=== PATIENT | female | born 1955 | race Caucasian/White ===

== ENCOUNTER 2018-02-13 18:14 | Emergency (ER) | payer OTHER ==
[~2018-02-13] VITALS: Ht 152.4 cm; Wt 64.5 kg
[2018-02-13 18:25] VITALS: BP 130/69
[2018-02-13 20:22] VITALS: BP 105/57
== END 2018-02-13 20:22 | disposition home or self-care (01) ==
LOC: MED 18:14
DX: R05 Cough (principal); R52 Pain, unspecified; R06.02 Shortness of breath; Z90.49 Acquired absence of other specified parts of digestive tract
CPT/HCPCS: 99283

== ENCOUNTER 2020-02-04 09:34 | Emergency (ER) | payer OTHER ==
[~2020-02-04] VITALS: Ht 152.4 cm; Wt 68.5 kg
[2020-02-04 09:38] VITALS: BP 118/86
--- NOTE | 2020-02-04 10:05 | NUR ---
PT STILL UNABLE TO URINATE, ERMD MADE AWARE
--- NOTE | 2020-02-04 10:11 | NUR ---
64 YEAR OLD FEMALE COMPLAINS OF DYSURIA, FREQUENT URINATION X 3 DAYS. PT DENIES HEMATURIA OR FLANK PAIN. PT AOX4, BREATHING EVEN AND UNLABORED, SKIN WARM AND DRY. BED IN LOWEST POSITION, LOCKED, BED RAIL UPX1. PMH - DENIES ALLERGIES - NKA
[2020-02-04] MEDS ORDERED: cephALEXin 500 MG CAP PO ONE (10:30)
--- NOTE | 2020-02-04 10:56 | NUR ---
Covid swab collected and walked to lab.
[2020-02-04 11:41] VITALS: BP 118/86
--- NOTE | 2020-02-04 11:41 | NUR ---
Patient discharged with v/s stable. Written and verbal after care instructions given and explained. Patient alert, oriented and verbalized understanding of instructions. Ambulatory with steady gait. All questions addressed prior to discharge. ID band removed. Patient advised to follow up with PMD. Rx of Tessalon Perles, Levofloxacin 750mg, and Albuterol Inhaler given. Patient educated on indication of medication including possible reaction and side effects. Opportunity to ask questions provided and answered.
== END 2020-02-04 11:41 | disposition home or self-care (01) ==
LOC: MED 09:34
DX: U07.1 COVID-19 (principal); R35.0 Frequency of micturition
CPT/HCPCS: 71045; 81002; 81025; 87086; 99283; U0003

== ENCOUNTER 2020-09-22 11:38 | Emergency (ER) | payer OTHER ==
[~2020-09-22] VITALS: Ht 149.9 cm; Wt 72.6 kg
[2020-09-22 11:56] VITALS: BP 123/73
--- NOTE | 2020-09-22 12:00 | NUR ---
PT TO LOBBY.
--- NOTE | 2020-09-22 14:20 | NUR ---
Pt ambulated to bed 3.
[2020-09-22] MEDS ORDERED: predniSONE 20 MG TAB PO ONE (14:45)
[2020-09-22] MEDS ORDERED: ALBUTEROL SULFATE/IPRATROPIU 3 ML SOL IH ONE ×2 (14:45→16:15)
--- NOTE | 2020-09-22 14:45 | NUR ---
65 Y/O FEMALE C/O SORE THROAT XTODAY WITH PRODUCTIVE COUGH X3 DAYS. PT HAS A RASPY VOICE AND ALSO NASAL CONGESTION. PT STATES SHE TOOK NYQUIL LAST NIGHT WITH NO RELIEF. DENIES N/V, DENIES FEVER/CHILLS. PT IS COVID VACCINATED. PT A/O X4 WITH EVEN AND UNLABORED RESPIRATIONS. PMH:DENIES NKA
--- NOTE | 2020-09-22 15:10 | NUR ---
RAD AT BEDSIDE
--- NOTE | 2020-09-22 16:20 | NUR ---
RT AT BEDSIDE
--- NOTE | 2020-09-22 16:22 | NUR ---
[facility] THERPAY AND RESPIRATORY DRUG GIVEN ORDERED ENCOURAGED PATIENT FOR INTERMITTENT DEEP BREATHING DURING THERAPY
[2020-09-22] MEDS ORDERED: ACET-10509 PO (17:14)
[2020-09-22] MEDS ORDERED: ALBU0.0912 IH (17:14)
[2020-09-22] MEDS ORDERED: PRED20TA5 PO (17:14)
[2020-09-22 17:24] VITALS: BP 138/70
--- NOTE | 2020-09-22 17:24 | NUR ---
Patient discharged with v/s stable. Written and verbal after care instructions given and explained. Patient alert, oriented and verbalized understanding of instructions. Ambulatory with steady gait. All questions addressed prior to discharge. ID band removed. Patient advised to follow up with PMD. Rx of Prednisone, Proventil, Tylenol given. Patient educated on indication of medication including possible reaction and side effects. Opportunity to ask questions provided and answered.
== END 2020-09-22 17:24 | disposition home or self-care (01) ==
LOC: MED 11:38
DX: J06.9 Acute upper respiratory infection, unspecified (principal); Z20.822 Contact with and (suspected) exposure to COVID-19; J04.0 Acute laryngitis; Z79.899 Other long term (current) drug therapy
CPT/HCPCS: 71045; 94640; 99283; U0003; J7512

== ENCOUNTER 2020-10-03 20:09 | Emergency (ER) | payer OTHER, SELFPAY ==
[~2020-10-03] VITALS: Ht 152.4 cm; Wt 72.1 kg
[~2020-10-03 20:09] MED LIST: ACET-10509 PO; ALBU0.0912 IH; PRED20TA5 PO
[2020-10-03 20:15] VITALS: BP 145/67
--- NOTE | 2020-10-03 20:18 | NUR ---
TO LOBBY A/W BED AMBULATORY
--- NOTE | 2020-10-03 21:04 | NUR ---
PT TAKEN TO XRAY FROM [facility]
--- NOTE | 2020-10-03 21:17 | NUR ---
WAQAR COLLECTED AND GIVEN TO NII GASTON TECH
[2020-10-03 21:27] LABS: BASOPHILS # (AUTO) 0.1 K/uL (0.00-0.22); BASOPHILS % (AUTO) 0.7 % (0.0-2.0); EOSINOPHILS # (AUTO) 0.4 K/uL (0-0.4); EOSINOPHILS % (AUTO) 3.6 % (0.0-4.0); HEMATOCRIT 40.7 % (36-48); HEMOGLOBIN 13.4 g/dL (12.0-16.0); LYMPHOCYTES # (AUTO) 3.2 K/uL (2.5-16.5); LYMPHOCYTES % (AUTO) 31.6 % (20.5-51.1); MEAN CORPUSCULAR HEMOGLOBIN 33 pg (27-31); MEAN CORPUSCULAR HGB CONC 33 g/dL (33-37); MEAN CORPUSCULAR VOLUME 99.4 fL (80-94); MONOCYTES # (AUTO) 0.7 K/uL (0.8-1.0); MONOCYTES % (AUTO) 6.6 % (1.7-9.3); NEUTROPHILS # (AUTO) 5.8 K/uL (1.8-7.7); NEUTROPHILS % (AUTO) 57.5 % (42.2-75.2); PLATELET COUNT (AUTO) 331 K/uL (140-450); RED CELL DISTRIBUTION WIDTH 13.2 % (11.6-13.7); WHITE BLOOD COUNT (AUTO) 10.1 K/uL (4.8-10.8)
[2020-10-03 21:42] LABS: ALBUMIN 3.3 g/dL (3.4-5.0); ANION GAP 10.1 (8-16); CARBON DIOXIDE 29.1 mmol/L (21-32); CREATININE 0.8 mg/dL (0.6-1.3); POTASSIUM 4.2 mmol/L (3.5-5.1); TOTAL BILIRUBIN 0.3 mg/dL (0.0-1.0)
--- NOTE | 2020-10-03 22:24 | NUR ---
Patient discharged with v/s stable. Written and verbal after care instructions given and explained. Patient verbalized understanding. Ambulatory with steady gait. All questions addressed prior to discharge. Advised to follow up with PMD.
== END 2020-10-03 22:24 | disposition home or self-care (01) ==
LOC: MED 20:09
DX: D68.62 Lupus anticoagulant syndrome (principal); R05 Cough; Z20.822 Contact with and (suspected) exposure to COVID-19
CPT/HCPCS: 36415; 71045; 80053; 84484; 85025; 93005; 99283; 99285

== ENCOUNTER 2021-11-30 22:57 | Emergency (ER) | payer OTHER ==
[~2021-11-30] VITALS: Ht 152.4 cm; Wt 69.4 kg
--- NOTE | 2021-11-30 23:07 | NUR ---
to lobby a/w be ambulatory
--- NOTE | 2021-11-30 23:50 | NUR ---
PT TO BED 5
--- NOTE | 2021-12-01 | NUR ---
FIRST CONTACT WITH PT. PT SITTING IN CHAIR. NO S/S OF DISTRESS NOTED. SEE ASSESSMENT.
--- NOTE | 2021-12-01 00:05 | NUR ---
URINE SENT TO LAB
[2021-12-01 00:41] LABS: APPEARANCE,URINE CLEAR (CLEAR); BILIRUBIN,URINE NEGATIVE (NEGATIVE); BLOOD, URINE 2+ (NEGATIVE); COLOR,URINE ORANGE (YELLOW); LEUKOCYTE ESTERASE ,URINE 3+ (NEGATIVE); NITRITE, URINE POSITIVE (NEGATIVE); UGLUCOSE TRACE (NEGATIVE)
[2021-12-01] MEDS ORDERED: KETOROLAC 60 MG/2 ML VIAL IM ONE (00:45)
[2021-12-01] MEDS ORDERED: PHEN-1877 PO (00:49)
[2021-12-01] MEDS ORDERED: CIPR500T4 PO (00:49)
[2021-12-01] MEDS ORDERED: IBUP-2213 PO (00:49)
[2021-12-01 00:59] LABS: RBC,URINE 0-5 /HPF (0-5); WBC,URINE 20-60 /HPF (0-5)
[2021-12-01 01:00] VITALS: BP 132/76
--- NOTE | 2021-12-01 01:00 | NUR ---
Patient discharged with v/s stable. Written and verbal after care instructions given and explained. Patient alert, oriented and verbalized understanding of instructions. Ambulatory with steady gait. All questions addressed prior to discharge. ID band removed. Patient advised to follow up with PMD. Rx of CIPRO, PYRIDIUM, MOTRIN given. Patient educated on indication of medication including possible reaction and side effects. Opportunity to ask questions provided and answered.
[2021-12-01] MEDS ORDERED: DIPH25TA53 PO (02:39)
[2021-12-01] MEDS ORDERED: PRED20TA5 PO (02:39)
== END 2021-12-01 01:00 | disposition home or self-care (01) ==
LOC: MED 22:57
DX: N39.0 Urinary tract infection, site not specified (principal); J45.909 Unspecified asthma, uncomplicated; I10 Essential (primary) hypertension; E78.00 Pure hypercholesterolemia, unspecified; Z90.49 Acquired absence of other specified parts of digestive tract; Z79.899 Other long term (current) drug therapy
CPT/HCPCS: 81001; 87086; 96372; 99283; J1885

== ENCOUNTER 2023-03-08 16:04 | Emergency (ER) | payer OTHER ==
[~2023-03-08] VITALS: Ht 152.4 cm; Wt 69.4 kg
[~2023-03-08 16:04] MED LIST changes: +CIPR500T4 PO; +DIPH25TA53 PO; +IBUP-2213 PO; +PHEN-1877 PO
[2023-03-08 16:21] VITALS: BP 122/63; PULSE 76; RESP 16; TEMP 98.1; O2SAT 97
[2023-03-08 17:41] LABS: APPEARANCE,URINE CLEAR (CLEAR); BILIRUBIN,URINE NEGATIVE (NEGATIVE); BLOOD, URINE TRACE-I (NEGATIVE); COLOR,URINE YELLOW (YELLOW); LEUKOCYTE ESTERASE ,URINE 1+ (NEGATIVE); NITRITE, URINE POSITIVE (NEGATIVE); PROTEIN,URINE NEGATIVE (NEGATIVE); UGLUCOSE NEGATIVE (NEGATIVE); UROBILINOGEN,URINE 0.2 EU/dL (0.2 - 1)
[2023-03-08 17:58] LABS: BACTERIA,URINE 1+ /HPF (None Seen); MUCUS,URINE 2+ /LPF (None Seen); RBC,URINE 0-5 /HPF (0-5); SQUAMOUS EPITHELIAL CELL,UR 20-50 /LPF (0-3 (FEW)); TRICHOMONAS,URINE None Seen /HPF (None Seen); WBC,URINE 16-25 (MOD) /HPF (0-5); YEAST,URINE None Seen /HPF (None Seen)
[2023-03-08] MEDS ORDERED: PHEN-1877 PO ×2 (19:04→19:14)
[2023-03-08] MEDS ORDERED: CIPR500T4 PO ×2 (19:04→19:14)
[2023-03-08 19:17] VITALS: BP 139/76; PULSE 72; RESP 16; TEMP 98; O2SAT 99
== END 2023-03-08 19:18 | disposition home or self-care (01) ==
LOC: MED 16:04
DX: N39.0 Urinary tract infection, site not specified (principal); J45.909 Unspecified asthma, uncomplicated; I10 Essential (primary) hypertension; Z79.899 Other long term (current) drug therapy; Z79.1 Long term (current) use of non-steroidal anti-inflammatories (NSAID); Z79.2 Long term (current) use of antibiotics
CPT/HCPCS: 81001; 87086; 99283